=== PATIENT | male | born 1985 | race Caucasian/White ===

== ENCOUNTER 2018-03-25 21:44 | Emergency (ER) | payer BC ==
[2018-03-25 22:38] LABS: BASOPHIL % 0.2 % (0-2); PLATELET COUNT 184 x10^3mcL (130-400); RED CELL DISTRIBUTION WIDTH 13.6 % (11.5-14.5)
[2018-03-25 22:50] LABS: CARBON DIOXIDE 31.7 mmol/L (21-32); CHLORIDE SERUM 103 mmol/L (98-107); CREATININE SERUM 1.1 mg/dL (0.7-1.3); GFR1 > 60 mL/min; GLUCOSE SERUM 114 mg/dL (74-106); POTASSIUM SERUM 3.6 mmol/L (3.5-5.1); SODIUM SERUM 140 mmol/L (136-145)
[2018-03-25 22:53] LABS: ALBUMIN 3.7 g/dL (3.4-5.0); ALKALINE PHOSPHATASE 53 U/L (46-116); ALT/SGPT 35 U/L (16-63); AMYLASE 35 U/L (25-115); AST/SGOT 23 U/L (15-37); BILIRUBIN TOTAL 0.31 mg/dL (0.20-1.00); LIPASE 96 IU/L (73-393); TOTAL PROTEIN, SERUM 7.1 g/dL (6.4-8.2)
[2018-03-26 00:02] VITALS: BP 114/68
== END 2018-03-26 00:02 | disposition home or self-care (01) ==
LOC: ED 21:44
PROVIDERS: Emergency Medicine
DX: K80.20 Calculus of gallbladder without cholecystitis without obstruction (principal)
CPT/HCPCS: 83880; J1885; Q0092

== ENCOUNTER 2019-08-11 00:13 | Inpatient (IN) | payer OTHER ==
[~2019-08-11] VITALS: Ht 177.8 cm; Wt 109.3 kg
--- NOTE | 2019-08-11 00:29 | NUR ---
PT PRESENTS TO THE ER TODAY FOR EPIGASTRIC PAIN THAT RADIATES TO THE RUQ AND BACK. PT STATES IT HAS BEEN GOING ON FOR THE PAST YEAR BUT WORSE FOR THE LAST 3 DAYS. PT STATES HE HAS AN APPOITMENT ON THIS COMING MONDAY TO SEE A SURGEON TO TALK ABOUT REMOVING HIS GALL BLADDER. PT COMPLAINS OF NAUSEA AND VOMITING. PT STATES THE PAIN IS 10/10 DESCRIBED CRAMPING. NO OTHER SYMPTOMS REPORTED VITAL SIGNS STABLE. RESPIRATIONS EVEN AND UNLABORED. NO ACUTE DISTRESS NOTED.
[2019-08-11 00:49] LABS: BASOPHIL % 0.4 % (0-2); PLATELET COUNT 167 x10^3mcL (130-400)
[2019-08-11 01:37] LABS: CALCIUM 8.1 mg/dL (8.5-10.1); CARBON DIOXIDE 31.2 mmol/L (21-32); CHLORIDE SERUM 105 mmol/L (98-107); GFR1 > 60 mL/min; GLUCOSE SERUM 122 mg/dL (74-106); POTASSIUM SERUM 3.6 mmol/L (3.5-5.1); SODIUM SERUM 143 mmol/L (136-145)
[2019-08-11 01:41] LABS: ALBUMIN 3.8 g/dL (3.4-5.0); ALKALINE PHOSPHATASE 63 U/L (46-116); ALT/SGPT 22 U/L (16-63); AMYLASE 40 U/L (25-115); AST/SGOT 19 U/L (15-37); BILIRUBIN TOTAL 0.42 mg/dL (0.20-1.00); LIPASE 125 IU/L (73-393)
--- NOTE | 2019-08-11 01:58 | NUR ---
ULTRASOUND AT [facility]. PT STATES PAINIS BETTER 04/05. VITAL SIGNS STABLE. RESPIRATIONS EVEN AND UNLABORED. NO ACUTE DISTRESS NOTED.
--- NOTE | 2019-08-11 03:13 | NUR ---
SPOKE W/NUCLEAR MEDCINE, STS PT SHOULD BE KEPT NPO W/NO PAIN MEDICATION. WILL CONTINUE TO MONITOR.
--- NOTE | 2019-08-11 03:17 | NUR ---
PT MEDICATED PER ORDER. PT VERBALIZED UNDERSTANDING OF MEDICATION TEACHING. SEE EMAR FOR DETAILS.
--- NOTE | 2019-08-11 03:32 | NUR ---
REPORT GIVEN TO MATTIE HARE TO ASSUME CARE OF PT. RN AWARE PT SHOULD BE KEPT NPO AND W/OUT PAIN MEDICATION.
--- NOTE | 2019-08-11 03:41 | NUR ---
PT TAKEN TO MED SURG FLOOR BY EMT. NO S/S OF DISTRESS. RESP E/U. REPORT GIVEN TO RN. IV SITE PATENT, PT DENIES PAIN OR DISCOMFORT.
[2019-08-11 03:52] VITALS: BP 114/63
[2019-08-11 04:03] LABS: FREE T4 1.29 ng/dL (0.76-1.46); FREE THYROXINE INDEX 3.9 ug/dL (1.4-4.5); T4(THYROXINE) 10.6 ug/dL (4.7-13.3)
[2019-08-11 04:05] LABS: T3 TOTAL 0.97 ng/mL
[2019-08-11 04:19] VITALS: BP 114/63
--- NOTE | 2019-08-11 04:23 | NUR ---
RECEIVED PT FROM ED VIA WHEELCHAIR ACCOMPANIED BY ER NURSE WITH THE CHIEF COMPLAINTS OF ABDOMINAL PAIN/RIGHT FLANK PAIN. DENIES ANY PAIN AT THIS TIME PAIN LEVEL 0/10, WAS GIVEN MORPHIE AT ER TOELRSTED WELL. PLACED COMFORTABLY IN BED. ROUTINE VITAL SIGNS TAKEN AND RECORDED. SKIN WARM AND ASCENCION=Y TO TOUCH. NO SKIN BREAKDOWN NOTED. ROCEPIN I JENNY IVP IN PROGRESS. NO APPARENT ADVERSE REACTION NOTED. PLACED CALL LIGHT WITHIN REACH, INSTRUCTED TO CALL FOR ANY ASSISTANCE NEEDED.
--- NOTE | 2019-08-11 04:37 | NUR ---
REMAINS NPO ORDERED FOR HIDA SCAN IN AM. PT ,MARCIA AWARE AND COOPERATIVE WITH PLAN OF CARE.
--- NOTE | 2019-08-11 06:38 | NUR ---
STARTED ON IVF NS AT 100CC/HR ORDERED VIA PERIPHERAL LINE AT THE LEFT ANTECUBILA AREA. AMBULATED TO BATHROOM FOR PERSONAL NEEDS. CALL LIGHT WITHIN REACH. BED LOCJED AND IN LOWEST POSITION .
--- NOTE | 2019-08-11 07:20 | NUR ---
RECEIVED BEDSIDE REPORT FROM ENTRY LEVEL FINANCE NURSE AT THIS TIME. PATIENT RESTING COMFORTABLY IN BED. SIGNIFICANT OTHER AT BEDSIDE. BREATHING EVEN AND UNLABORED. NO RESPIRATORY DISTRESS OR DISCOMFORT NOTED. PATIENT DENIES SHORTNESS OF BREATH. PATIENT DENIES CHEST PAIN/PRESSURE. IV PATENT AND INTACT. ALL QUESTIONS AND CONCERNS ADDRESSED. ALL NEEDS ATTENDED TO. WILL CONTINUE TO MONITOR
--- NOTE | 2019-08-11 08:30 | NUR ---
PATIENT DOWN FOR HIDA SCAN AT THIS TIME. WILL MONITOR WHEN BACK ON FLOOR
--- NOTE | 2019-08-11 10:55 | NUR ---
PATIENT BACK FROM HIDA SCAN AT THIS TIME. WILL ADMINISTER MORNING MEDICATION (SEE EMAR). ALL NEEDS ATTENDED TO. WILL CONTINUE TO MONITOR
[2019-08-11 12:07] LABS: BASOPHIL % 0.2 % (0-2); PLATELET COUNT 168 x10^3mcL (130-400); RED CELL DISTRIBUTION WIDTH 13.3 % (11.5-14.5)
[2019-08-11 12:18] LABS: CALCIUM 8.6 mg/dL (8.5-10.1); CARBON DIOXIDE 30.8 mmol/L (21-32); CHLORIDE SERUM 106 mmol/L (98-107); CREATININE SERUM 0.8 mg/dL (0.7-1.3); GFR1 > 60 mL/min; GLUCOSE SERUM 92 mg/dL (74-106); MAGNESIUM 2.1 mg/dL (1.8-2.4); PHOSPHOROUS 3.8 mg/dL (2.5-4.9); POTASSIUM SERUM 4.2 mmol/L (3.5-5.1); SODIUM SERUM 143 mmol/L (136-145)
--- NOTE | 2019-08-11 13:21 | NUR ---
SPOKE TO DR MELO AT THIS TIME REGARDING PATIENT. WAITING FOR HIDA SCAN RESULTS AT THIS TIME. WILL CALL DR MELO WITH RESULTS.
--- NOTE | 2019-08-11 15:23 | NUR ---
SPOKE TO DR VINSON AT THIS TIME REGARDING HIDA SCAN RESULTS. PER DR VINSON, HE WILL SPEAK WITH THE PATIENT REGARDING POC. ALL NEEDS ATTENDED. AWAITING DR VINSON AT THIS TIME.
--- NOTE | 2019-08-11 15:51 | NUR ---
DR VINSON AT BEDSIDE REVIEWING POC WITH PATIENT AND SIGNIFICANT OTHER. ALL QUESTIONS AND CONCERNS ADDRESSED. ALL NEEDS ATTENDED TO. WILL CONTINUE TO MONITOR
[2019-08-11 17:22] VITALS: BP 93/55
--- NOTE | 2019-08-11 17:30 | NUR ---
GAVE REPORT REPORT TO MARGARITO OR NURSE AT THIS TIME. ALL QUESTIONS AND CONCERNS ADDRESSED. ALL NEEDS ATTENDED TO. WILL CONTINUE TO MONITOR
--- NOTE | 2019-08-11 17:31 | NUR ---
QUITA WIPES COMPLETED AT THIS TIME
--- NOTE | 2019-08-11 18:00 | NUR ---
PATIENT DOWN FOR PROCEDURE AT THIS TIME. ALL NEEDS ATTENDED TO
--- NOTE | 2019-08-11 19:03 | NUR ---
PATIENT DOWN FOR PROCEDURE AT THIS TIME. WILL ENDORSE ALL CARE TO CHIEF TECHNICIAN NURSE
--- NOTE | 2019-08-11 19:30 | NUR ---
PT NOT IN THE UNIT AT THIS TIME, PATIENT STILL IN OR FOR LAP MARCELA.
--- NOTE | 2019-08-11 20:45 | NUR ---
RECEIVED PATIENT FROM OR DEPT VIA GUERNEY ACCOMPANIED BY OR NURSE, ALERT AND VERBALLY RESPONSIVE. ABLE TO MAKE ENEDS KNOWN. ABDOMEN SOFT, NON-TENDER WITH 4ABDOMINAL INCISSION COVERD WITH BANDAIDS, NO ACTIVE BLOOEDING NOTED. RESPIRATION EVEN AND UNLABORED. ON 02 AT 2L/NC WITH [id number] 98%. IV SITE AT THE LAC INTACT AND PATNET. NO REDNESS NOTED AT THE IV SITE. VITAL SIGNS TAKEN AND RECORDED. PLACED CALL LIGHT WITHIN REACH.
[2019-08-11 20:50] VITALS: BP 117/67
--- NOTE | 2019-08-12 00:01 | NUR ---
EYES CLOSED, NOF ACIAL GRIAMCING NOTED. RESPIRATION EVEN AND UNLABORED. NO S/S OF PAIN/DISCOMFORT. KEPT CLEAN AND DRY.
[2019-08-12 04:48] VITALS: BP 113/77
--- NOTE | 2019-08-12 06:23 | NUR ---
URINE SPECIMEN COLLECTED FOR UA/UDS AND SENT TO LAB.. NO ADVERSE REACTION NOTED FORM ATB THERAPY. ALL NEEDS ATTENDED.
[2019-08-12 06:44] LABS: CALCIUM 8.3 mg/dL (8.5-10.1); CHLORIDE SERUM 106 mmol/L (98-107); CREATININE SERUM 0.9 mg/dL (0.7-1.3); GFR1 > 60 mL/min; GLUCOSE SERUM 127 mg/dL (74-106); PHOSPHOROUS 4.9 mg/dL (2.5-4.9); POTASSIUM SERUM 4.3 mmol/L (3.5-5.1); SODIUM SERUM 142 mmol/L (136-145)
[2019-08-12 06:45] LABS: BASOPHIL % 0.2 % (0-2); PLATELET COUNT 170 x10^3mcL (130-400); RED CELL DISTRIBUTION WIDTH 12.9 % (11.5-14.5)
[2019-08-12 07:38] LABS: UA SPECIFIC GRAVITY >=1.030 (1.005-1.035); microscopic required? YES; urine erythrocyte NEGATIVE (NEGATIVE)
[2019-08-12 07:54] LABS: AMPHETAMINE QUAL UR NONE DETECTED (See below)
--- NOTE | 2019-08-12 08:00 | NUR ---
RECEIVED PT A/A/OX4 DENIES UMAÑA. RESP EVEN AND UNLABORED WITH CLEAR BS BILAT. DENIES ANY SOB/CP/PRESSURE AT THIS TIME. IV SL TO LAC. ABD SOFT, TENDER TO TOUCH WITH ACTIVE BS X4. DENIES ANY N/V AT THIS TIME. S/P LAP MARCELA POD1. SX SITES WITH BANDAIDS CDI. TOLERATING CARDIAC DIET WELL. C/O MOD PAIN TO ABD AT 6/10, MEDICATED WITH MORPHINE IVP PER EMAR. PT INSTRUCTED TO USE CALL LIGHT WHEN IN NEED OF ASSISTANCE SINCE MORPHINE CAN CAUSE DIZZINESS. CALL LIGHT IN REACH NEEDS ATTENDED TO.
[2019-08-12 08:50] VITALS: BP 108/65
[2019-08-12] MEDS ORDERED: LEVOFLOXACIN500 M1 PO (12:33)
--- NOTE | 2019-08-12 12:43 | NUR ---
PT C/O PAIN 10 TO ABD, AND FEELING BLOATED. DR. SUTTON WAS PAGED TO REQUEST SIMETHICONE AND NORCO SINCE PT ONLY HAS IVP MEDS. OBTAINED ORDERS AND PT MEDICATED WITH NORCO PER EMAR AND ONE TIME DOSE OF SIMETHICONE. CONT TO MONITOR.
[2019-08-12 13:23] VITALS: BP 114/63
--- NOTE | 2019-08-12 15:25 | NUR ---
PT/ PROVIDED WITH D/C HOME INSTRUCTIONS. PROVIDED WITH WRITTEN AND VERBAL POSTOP CARE INSTRUCTIONS. CHANGED BANDAIDS AND OBTAINED SX PICTURES. PT INSTRUCTED NOT TO LIFT ANYTHING OVER 20LBS, LUBE BATH OR GO SWIMMING UNTIL CLEAR BY SURGEON. PT MADE AWARE OF F/U APPT WITH SURGEON ON 08/22 AT 3PM. INSTRUCTED TO KEEP SX SITES CDI. PT VERBALIZED UNDERSTANDING OF INSTRUCTIONS. IV D/C'D CATHETER INTACT. PT TRANSPORTED TO [facility] VIA WITH ALL PERSONAL BELONGINGS AND PRESCRIPTIONS IN HAND INCLUDING PERCOCET RX BY DR. MELO. PT LEFT FLOOR FREE OF ANY DISTRESS.
== END 2019-08-12 15:24 | disposition home or self-care (01) | DRG 419 ==
LOC: ED 00:13 → MU 03:05
PROVIDERS: Emergency Medicine; Surgery; ADMIT Internal Medicine
PROC: 0FT44ZZ Resection of Gallbladder, Percutaneous Endoscopic Approach (ICD-10-PCS; principal; 2019-08-11 18:30)
DX: K80.00 Calculus of gallbladder with acute cholecystitis without obstruction (principal); E83.51 Hypocalcemia; R73.9 Hyperglycemia, unspecified
CPT/HCPCS: 78226; 84439; A9537; G0378; J0330; J0690; J0696; J1170; J2270; J2405; J2704; J2710; J3010; J3490; J7030; J7120; Q0092